=== PATIENT | female | born 1975 | race Caucasian/White ===

== ENCOUNTER 2017-10-14 10:04 | Outpatient (CLI) | payer BC ==
[2017-10-14 10:53] LABS: #Basophils 0.1 thou/uL (0.0-0.2); #Eosinphils 0.2 thou/uL (0.0-0.7); #Lymphocytes 2.5 thou/uL (1.20-3.40); #Monocytes 0.5 thou/uL (0.11-0.59); #Neutrophils 5.3 thou/uL (1.40-6.50); %Basophils 1.1 % (0.0-1.0); %Eosinophils 1.8 % (0.0-10.0); %Lymphocytes 29.3 % (21.0-51.0); %Monocytes 5.5 % (0.0-10.0); %Neutrophils 62.3 % (42.0-75.0); Hemoglobin 12.5 g/dL (12.0-16.0); Mean Corpuscular HGB CONC 32.3 g/dL (32.0-36.0); Mean Corpuscular Hemoglobin 27.2 pg (27.0-31.0); Mean Corpuscular Volume 84.3 fl (81.0-99.0); Mean Platelet Volume 7.9 fL (7.4-10.4); Platelet Count 386 thou/uL (130-400); RBC Distribution Width 12.1 % (11.5-14.5); White Blood Cell (WBC) Count 8.6 thou/uL (4.8-10.8)
[2017-10-14 11:10] LABS: ALT (SGPT) 24 U/L (8-55); AST (SGOT) 22 U/L (5-34); Alkaline Phosphatase 60 U/L (40-150); Anion Gap 18 mmol/L (10-20); BUN (Urea Nitrogen) 14 mg/dL (7.0-18.7); Bilirubin, Total 0.5 mg/dL (0.2-1.2); Calc. Creatinine Clearance 0 mL/min (70-130); Calcium 9.5 mg/dL (7.8-10.44); Carbon Dioxide 21 mmol/L (22-29); Cardiac Risk 4.8 (Less than 4.5); Chloride 98 mmol/L (98-107); Cholesterol 223 mg/dl (< 200 Desired); Estimated GFR-MDRD 88; Globulin 3.9 g/dL (2.4-3.5); Glucose 102 mg/dL (70-105); HDL Cholesterol 46 mg/dL (>60 Neg Risk); LDL Cholesterol, Calculated 134 mg/dL; Protein, Total 7.9 g/dL (6.0-8.3); Sodium 133 mmol/L (136-145); Triglycerides 217 mg/dL (Less than 150)
[2017-10-14 11:22] LABS: Free T4 (Free Thyroxine) 1.07 ng/dL (0.70-1.48); Thyroid Stimulating Hormone 1.4285 uIU/mL (0.35-4.94)
--- NOTE | 2017-10-14 12:42 | RAD ---
LEFT KNEE 4 VIEWS: HISTORY: Injured knee in September. FINDINGS: There are arthritic changes of the knee. This includes some minimal medial compartment narrowing and tiny spur formation at the patellofemoral joint space and lateral compartment. No joint effusion or acute bony findings. IMPRESSION: Fairly minimal arthritic changes of the knee. POS: ROMINA
[2017-10-14 14:12] LABS: Microalbumin Urine Less than 5.0 mg/dL (0.5-50.0)
[2017-10-14 14:27] LABS: Vitamin D, 25 Hydroxy 25.4 ng/ml (> 30.0)
== END 2017-10-14 10:05 | disposition home or self-care (01) ==
LOC: SCSRAD 10:04
PROVIDERS: ATTEND Family Medicine
DX: Z00.00 Encounter for general adult medical examination without abnormal findings (principal); M25.562 Pain in left knee
CPT/HCPCS: 36415; 80053; 80061; 82043; 82306; 83036; 84439; 84443; 85025

== ENCOUNTER 2018-11-17 09:52 | Outpatient (CLI) | payer BC ==
--- NOTE | 2018-11-30 14:08 | MMO ---
Bilateral MAMMO Bilat Screen [facility]. CLINICAL HISTORY: Patient is 43 years old and is seen for screening. The patient has the following family history of breast cancer: maternal grandmother, at age 57. The patient has no personal history of cancer. VIEWS: The views performed were: bilateral craniocaudal and bilateral mediolateral oblique. FILMS COMPARED: The present examination has been compared to prior imaging studies performed at [facility] on 10/29/2016 and 11/04/2017. This study has been interpreted with the assistance of computer-aided detection. MAMMOGRAM FINDINGS: There are scattered fibroglandular densities. Finding 1: There are stable benign appearing calcifications seen in the left breast. Finding 2: There is a stable intramammary lymph node seen in the upper-outer region of the right breast. There are no suspicious masses, suspicious calcifications, or new areas of architectural distortion. IMPRESSION: THERE IS NO MAMMOGRAPHIC EVIDENCE OF MALIGNANCY. A ROUTINE FOLLOW-UP MAMMOGRAM IN 1 YEAR IS RECOMMENDED. ACR BI-RADS Category 2 - Benign finding MAMMOGRAPHY NOTE: 1. A negative mammogram report should not delay a biopsy if a dominant of clinically suspicious mass is present. 2. Approximately 10% to 15% of breast cancers are not detected by mammography. 3. Adenosis and dense breasts may obscure an underlying neoplasm.
== END 2018-11-17 09:53 | disposition home or self-care (01) ==
LOC: SCSMAMMO 09:52
PROVIDERS: ATTEND Family Medicine
DX: Z12.31 Encounter for screening mammogram for malignant neoplasm of breast (principal); Z80.3 Family history of malignant neoplasm of breast
CPT/HCPCS: 77067

== ENCOUNTER 2021-05-01 09:25 | Outpatient (CLI) | payer BC | END 2021-05-01 09:26 | disposition home or self-care (01) | LOC: BICULT 09:25 | PROVIDERS: ATTEND Family Medicine | DX: R10.9 Unspecified abdominal pain (principal) | CPT/HCPCS: 76856 ==

== ENCOUNTER 2021-05-01 10:11 | Outpatient (CLI) | payer BC | END 2021-05-01 10:12 | disposition home or self-care (01) | LOC: BICMAMMO 10:11 | PROVIDERS: ATTEND Family Medicine | DX: Z12.31 Encounter for screening mammogram for malignant neoplasm of breast (principal); Z80.3 Family history of malignant neoplasm of breast | CPT/HCPCS: 77063; 77067 ==

== ENCOUNTER 2022-05-02 10:16 | Outpatient (CLI) | payer OTHER | END 2022-05-02 10:17 | disposition home or self-care (01) | LOC: BICMAMMO 10:16 | PROVIDERS: ATTEND Family Medicine | DX: Z12.31 Encounter for screening mammogram for malignant neoplasm of breast (principal); Z80.3 Family history of malignant neoplasm of breast | CPT/HCPCS: 77063; 77067 ==